=== PATIENT | female | born 1970 | race American Indian/Alaskan Native ===

== ENCOUNTER 2018-09-27 14:08 | Emergency (ER) | payer MEDICARE ==
[2018-09-27 14:48] VITALS: BP 124/77
--- NOTE | 2018-09-27 14:48 | Event Note ---
ED Screening Note ED Screening Note: sent by half-way via ems for wound on face clean/pink no drainage cig no etoh thc pmh asthma lmp beg. May This initial assessment/diagnostic orders/clinical plan/treatment(s) is/are subject to change based on patients health status, clinical progression and re- assessment by fellow clinical providers in the ED. Further treatment and workup at subsequent clinical providers discretion. Patient/guardian urged not to elope from the ED as their condition may be serious if not clinically assessed and jason pearson. Initial orders include: wound care NEED TO CHECK WITH EMS AND TRIP SHEET TO SEE IF THERE IS MORE REASONS WHY PT HERE no voices no hi no si
[2018-09-27] MEDS ORDERED: TRIPLE ANTIBIOTIC TP ONE (15:31)
--- NOTE | 2018-09-27 15:31 | Emergency Department Report ---
- General Chief Complaint: Wound/Laceration Stated Complaint: CUT ON FACE WILL NOT HEAL Time Seen by Provider: 09/27/18 14:46 Source: patient, EMS Mode of arrival: Ambulatory Limitations: No Limitations - History of Present Illness Initial Comments: Ms. Poon has a wound of the right cheek for 2 weeks. She picked a pimple according to her report. -: Gradual, week(s) (2) Location: face Associated Symptoms: none - Related Data Previous Rx's Medication Instructions Recorded Last Taken Type Sulfamethoxazole/Trimethoprim 1 each PO BID 7 Days #14 tablet 09/27/18 Unknown Rx [Bactrim DS TAB] Allergies Allergy/AdvReac Type Severity Reaction Status Date / Time No Known Allergies Allergy Verified 09/27/18 14:46 ED Review of Systems ROS: Stated complaint: CUT ON FACE WILL NOT HEAL Other details as noted in HPI Constitutional: denies: fever, malaise Skin: rash ED Past Medical Hx - Past Medical History Previous Medical History?: Yes Hx Diabetes: Yes Hx Psychiatric Treatment: Yes (schizophrenia, bipolar) - Social History Smoking Status: Current Every Day Smoker Substance Use Type: Marijuana - Medications Home Medications: Home Medications Medication Instructions Recorded Confirmed Last Taken Type Sulfamethoxazole/Trimethoprim 1 each PO BID 7 Days #14 tablet 09/27/18 Unknown Rx [Bactrim DS TAB] ED Physical Exam - General Limitations: No Limitations General appearance: alert, in no apparent distress - Head Head exam: Present: normocephalic, other (2 cm x 3 cm beefy red ulcer right cheek surrounding hyperpigmentation) - ENT ENT exam: Present: mucous membranes moist - Neurological Exam Neurological exam: Present: alert, oriented X3 - Psychiatric Psychiatric exam: Present: flat affect ED Course Vital Signs 09/27/18 14:46 Temperature 97.8 F Pulse Rate 107 H Respiratory 20 Rate Blood Pressure 124/77 [Right] O2 Sat by Pulse 98 Oximetry ED Medical Decision Making - Medical Decision Making facial ulcer, referred to general surgeon for senior care wound care rx: bactrim Critical care attestation.: If time is entered above; I have spent that time in minutes in the direct care of this critically ill patient, excluding procedure time. ED Disposition Clinical Impression: Chronic wound of head Disposition: DC-01 TO HOME OR SELFCARE Is pt being admited?: No Does the pt Need Aspirin: No Condition: Stable Additional Instructions: You will need equipment operator intermodal yard wound care. Please call our surgeon or see a coding quality analyst/plastic surgeon. Prescriptions: Sulfamethoxazole/Trimethoprim [Bactrim DS TAB] 1 each PO BID 7 Days #14 tablet Referrals: JANNIE JACKSON MD [Staff Physician] - 3-5 Days
== END 2018-09-27 15:47 | disposition home or self-care (01) ==
LOC: ED 14:08
DX: S01.401A Unspecified open wound of right cheek and temporomandibular area, initial encounter (principal); E11.9 Type 2 diabetes mellitus without complications; F17.200 Nicotine dependence, unspecified, uncomplicated; F12.90 Cannabis use, unspecified, uncomplicated; Z79.899 Other long term (current) drug therapy; X58.XXXA Exposure to other specified factors, initial encounter; Y93.89 Activity, other specified; Y92.89 Other specified places as the place of occurrence of the external cause; Y99.8 Other external cause status
CPT/HCPCS: 99283; A6250